=== PATIENT | female | born 1955 | race Caucasian/White ===

== ENCOUNTER → 2017-05-22 | Outpatient (CLI) | payer OTHER | END | disposition home or self-care (01) | LOC: CFH 14:56 | PROVIDERS: ATTEND Neurological Surgery | DX: M47.812 Spondylosis without myelopathy or radiculopathy, cervical region (principal); M48.02 Spinal stenosis, cervical region; M25.78 Osteophyte, vertebrae | CPT/HCPCS: 72141 ==

== ENCOUNTER 2017-06-15 08:53 | Observation (INO) | payer OTHER ==
[~2017-06-15] VITALS: Ht 154.9 cm; Wt 55.7 kg
[2017-06-15] MEDS ORDERED: PROG100C16 PO (10:06)
[2017-06-15] MEDS ORDERED: LEVO50TA PO (10:06)
[2017-06-15 10:56] LABS: BASOPHILS # (AUTO) 0.03 x10^3/uL (0-0.1); BASOPHILS % (AUTO) 1 % (0-1); EOSINOPHILS # (AUTO) 0.04 x10^3/uL (0-0.4); EOSINOPHILS % (AUTO) 1 % (1-7); LYMPHOCYTES # (AUTO) 1.35 x10^3/uL (1-3.4); LYMPHOCYTES % (AUTO) 24 % (22-44); MD NO; MEAN CORPUSCULAR HEMOGLOBIN 30.6 pg (27.0-34.8); MEAN CORPUSCULAR HGB CONC 33.8 g/dL (32.4-35.8); MEAN CORPUSCULAR VOLUME 90.4 fL (80-100); MONOCYTES # (AUTO) 0.39 x10^3/uL (0.2-0.8); MONOCYTES % (AUTO) 7 % (2-9); NEUTROPHILS # (AUTO) 3.87 x10^3/uL (1.8-6.8); NEUTROPHILS % (AUTO) 68 % (42-75); PLATELET COUNT 202 x10^3/uL (130-400); RED BLOOD COUNT 5.02 x10^6/uL (3.82-5.3)
[2017-06-15] MEDS ORDERED: ASPIRIN 81 MG TABLET CHEW ONE (10:57)
[2017-06-15] MEDS ORDERED: NITROGLYCERIN SINGLE TAB 0.4 MG SL ONE (10:57)
[2017-06-15] MEDS ORDERED: NITROGLYCERIN SINGLE TAB 0.4 MG SL PRN (11:00)
[2017-06-15] MEDS ORDERED: SODIUM CHLORIDE FLUSH 10ML SYR IVF ONE (11:00)
[2017-06-15] MEDS ORDERED: ASPIRIN 81 MG TABLET CHEW PO ONE (11:00)
[2017-06-15 11:01] LABS: INTERNATIONAL NORMALIZED RATIO 0.97 (0.93-1.1); PROTHROMBIN TIME 10.1 Seconds (9.6-11.5)
[2017-06-15 11:05] LABS: ALBUMIN 4.1 g/dL (3.4-5.0); ANION GAP 9 mmol/L (5-15); CALCIUM 9.1 mg/dL (8.5-10.1); CHLORIDE 107 mmol/L (98-107)
[2017-06-15 11:13] LABS: ALANINE AMINOTRANSFERASE 24 U/L (12-78); ALKALINE PHOSPHATASE 83 U/L (45-117); BILIRUBIN,TOTAL 1.1 mg/dL (0.2-1.0); CREATININE 0.89 mg/dL (0.55-1.02); TOTAL PROTEIN 7.8 g/dL (6.4-8.2); TROPONIN I < 0.015 ng/mL (0.000-0.045)
[2017-06-15] MEDS ORDERED: MAALOX/HYOSCYAMINE/LIDOCAINE 45 ML BTL ONE (11:19)
[2017-06-15] MEDS ORDERED: MAALOX/HYOSCYAMINE/LIDOCAINE 45 ML BTL PO ONE (11:30)
[2017-06-15] MEDS ORDERED: OMNIPAQUE 350 MG/ML, 100ML BOTTLE ONE (12:06)
[2017-06-15] MEDS ORDERED: GUAIFENESIN/DM 200-20MG, 10ML UDC PO PRN (13:30)
[2017-06-15] MEDS ORDERED: ONDANSETRON 2MG/ML, 2ML IVPush PRN (13:30)
[2017-06-15] MEDS ORDERED: ONDANSETRON ODT 4 MG PO PRN (13:30)
[2017-06-15] MEDS ORDERED: LABETALOL 5MG/ML, 20ML IVPush PRN (13:30)
[2017-06-15] MEDS ORDERED: POLYETHYLENE GLYCOL 17 GM PACKET PO PRN (13:30)
[2017-06-15 14:03] VITALS: BP 131/75
[2017-06-15] MEDS: ENOXAPARIN 40 MG/0.4 ML SQ SCH (17:02)
[2017-06-15 19:25] LABS: TROPONIN I < 0.015 ng/mL (0.000-0.045)
[2017-06-15 19:48] VITALS: BP 135/74
[2017-06-15] MEDS ORDERED: SODIUM CHLORIDE 0.9% 1,000 ML IV SCH (23:55)
[2017-06-16 02:30] VITALS: BP 107/70
[2017-06-16 05:26] LABS: BASOPHILS # (AUTO) 0.03 x10^3/uL (0-0.1); BASOPHILS % (AUTO) 1 % (0-1); EOSINOPHILS # (AUTO) 0.12 x10^3/uL (0-0.4); EOSINOPHILS % (AUTO) 2 % (1-7); LYMPHOCYTES % (AUTO) 30 % (22-44); MD NO; MEAN CORPUSCULAR HEMOGLOBIN 30.3 pg (27.0-34.8); MEAN CORPUSCULAR HGB CONC 33.8 g/dL (32.4-35.8); MEAN CORPUSCULAR VOLUME 89.8 fL (80-100); MEAN PLATELET VOLUME 8.4 fL (7.4-10.4); MONOCYTES # (AUTO) 0.59 x10^3/uL (0.2-0.8); MONOCYTES % (AUTO) 10 % (2-9); NEUTROPHILS # (AUTO) 3.27 x10^3/uL (1.8-6.8); NEUTROPHILS % (AUTO) 57 % (42-75); PLATELET COUNT 159 x10^3/uL (130-400); RED BLOOD COUNT 4.55 x10^6/uL (3.82-5.3); RED CELL DISTRIBUTION WIDTH 13.1 % (9.6-15.2)
[2017-06-16 05:33] LABS: CHLORIDE 110 mmol/L (98-107)
[2017-06-16 05:39] LABS: TROPONIN I < 0.015 ng/mL (0.000-0.045)
[2017-06-16 05:50] LABS: ALANINE AMINOTRANSFERASE 18 U/L (12-78); ALBUMIN 3.3 g/dL (3.4-5.0); ALKALINE PHOSPHATASE 69 U/L (45-117); ANION GAP 10 mmol/L (5-15); BILIRUBIN,TOTAL 0.9 mg/dL (0.2-1.0); CALCIUM 8.5 mg/dL (8.5-10.1); CHOL/HDL RATIO 2.7; CHOLESTEROL, TOTAL 175 mg/dL (140-239); HDL CHOL % 37 % (28-40); HDL CHOLESTEROL (DIRECT) 64 mg/dL (40-60); LDL CHOLESTEROL,CALCULATED 93 mg/dL (54-169); LDL/HDL RATIO 1.5 (0.5-3.0); TOTAL PROTEIN 6.4 g/dL (6.4-8.2); TRIGLYCERIDES 88 mg/dL (50-200); VLDL CHOLESTEROL 18 mg/dL (0-25)
[2017-06-16] MEDS ORDERED: ASPIRIN 81 MG TABLET EC PO SCH (06:00)
[2017-06-16] MEDS ORDERED: LEVOTHYROXINE 50 MCG TABLET PO SCH (06:00)
[2017-06-16 07:07] VITALS: BP 108/71
[2017-06-16] MEDS ORDERED: REGADENOSON 0.4 MG/5 ML SYRINGE ONE ×2 (07:58→08:30)
[2017-06-16] MEDS ORDERED: PANTOPRAZOLE 40 MG IV ONE (08:12)
[2017-06-16] MEDS ORDERED: AMINOPHYLLINE 25 MG/ML, 10ML ONE (08:53)
[2017-06-16] MEDS ORDERED: SENNA/DOCUSATE TABLET PO SCH (09:00)
[2017-06-16] MEDS ORDERED: PROGESTERONE 100 MG CAPSULE PO SCH (09:00)
[2017-06-16] MEDS ORDERED: PANTOPRAZOLE 40 MG IV IVPush SCH (09:00)
[2017-06-16] MEDS ORDERED: MAALOX/HYOSCYAMINE/LIDOCAINE 45 ML BTL PO ONE (09:00)
[2017-06-16 13:32] VITALS: BP 126/76
[2017-06-16] MEDS: ENOXAPARIN 40 MG/0.4 ML SQ SCH (13:44)
[2017-06-16] MEDS ORDERED: ASPI-621 PO (14:26)
== END 2017-06-16 15:35 | disposition home or self-care (01) ==
LOC: ED 10:13 → EDIP 12:37 → INTOOBSV 12:37 → 5SO 13:44 → DCLOUNGE 06-16 15:32
PROVIDERS: ADMIT Hospitalist; ATTEND Hospitalist
DX: R07.9 Chest pain, unspecified (principal); J02.9 Acute pharyngitis, unspecified; E03.9 Hypothyroidism, unspecified; K21.9 Gastro-esophageal reflux disease without esophagitis; R17 Unspecified jaundice
CPT/HCPCS: 36415; 71045; 71275; 78452; 80053; 80061; 83735; 83880; 84443; 84484; 85025; 85610; 85730; 93005; 93017; 93306; 96361; 96374; 99291; A9502; C9113; C9898; G0378; J2785; J7030; Q9967; J0280

== ENCOUNTER → 2017-06-25 | Outpatient (CLI) | payer OTHER ==
[~2017-06-25] MED LIST: ASPI-621 PO; GADOBUTROL 7.5 MMOL/7.5 ML VIAL ONE; LEVO50TA PO; PROG100C16 PO
== END | disposition home or self-care (01) ==
LOC: CFH 13:59
PROVIDERS: ATTEND Neurological Surgery
DX: M51.34 Other intervertebral disc degeneration, thoracic region (principal); Z85.42 Personal history of malignant neoplasm of other parts of uterus
CPT/HCPCS: 72157; A9585

== ENCOUNTER → 2017-12-28 | Outpatient (CLI) | payer OTHER ==
[~2017-12-28] MED LIST changes: -GADOBUTROL 7.5 MMOL/7.5 ML VIAL ONE
== END | disposition home or self-care (01) ==
LOC: CFH 10:25
PROVIDERS: ATTEND Surgery
DX: Z12.31 Encounter for screening mammogram for malignant neoplasm of breast (principal)
CPT/HCPCS: 77063; 77067